=== PATIENT | female | born 1985 | race Caucasian/White ===

== ENCOUNTER → 2021-05-25 | Outpatient (CLI) | payer OTHER ==
--- NOTE | 2021-05-26 11:43 | RAD ---
EXAM: ULTRASOUND ABDOMEN COMPLETE CLINICAL HISTORY: ELEVATED LFTS, ABD PAIN COMPARISON: None available. TECHNIQUE: Ultrasound of the upper abdomen was performed. FINDINGS: The head and body of the pancreas are unremarkable. The tail is obscured by intestinal gas.. The liver measures 15.7 cm in length in the right mid clavicular line. Mild increased hepatic echoge nicity relative to the right kidney consistent with hepatic steatosis.. There are no focal liver les ions. Flow seen within the portal veins. The gallbladder is normal in appearance without evidence for cholelithiasis. There is no wall thicke ashvin or pericholecystic fluid. There is no pain with direct transducer pressure over the gallbladder . The common bile duct measures 0.5 cm. The spleen measures 11.1 cm. The right kidney measures 9.7 cm in bipolar length. Normal renal cortical echotexture and thickness. No focal renal lesion, hydronephrosis or shadowing renal calculus. The left kidney measures 10.7 cm in bipolar length. Normal renal cortical echotexture and thickness. No focal renal lesion, hydronephrosis or shadowing renal calculus. Visualized portions of the abdominal aorta and inferior vena cava are unremarkable. There is no free fluid in the upper abdomen. IMPRESSION: 1. Mild hepatic steatosis. 2. Normal gallbladder. Normal caliber common bile duct. Electronically signed by: Cristian Cardona MD (05/26/2021 9:13 AM) [id number]
--- NOTE | 2021-05-26 15:13 | RAD ---
EXAM: ULTRASOUND PELVIS EXAM: Pelvic ultrasound INDICATION: Pelvic pain, particularly. Last menstrual period was 04/24/2021. COMPARISON: None available. TECHNIQUE: Transvaginal sonography was performed. FINDINGS: The uterus measures 10.7 x 6.9 x 6.4 cm and is anteverted. The endometrium is very thickened measurin g 3 cm. No focal myometrial or endometrial mass. The right ovary measures 3.5 x 2.3 x 2.5 cm. The left ovary measures 4.6 x 5.1 x 3.4 cm. Normal ovari an blood flow bilaterally. There is a 4.8 x 3.5 x 2.8 cm left ovarian cyst. No internal vascularity. Small free fluid in the left adnexa.No adnexal mass. IMPRESSION: 1. Very thickened endometrium measuring 3 cm. 2. 4.8 cm left ovarian cyst. Intact ovarian blood flow. 3. Trace free fluid in the left adnexa. Electronically signed by: Meghna Schneider MD (05/26/2021 3:11 PM) [id number]
== END ==
LOC: US 09:40
PROVIDERS: ATTEND Clinical Nurse Specialist Family Health
DX: N83.202 Unspecified ovarian cyst, left side (principal); N94.6 Dysmenorrhea, unspecified; R74.8 Abnormal levels of other serum enzymes; K76.0 Fatty (change of) liver, not elsewhere classified; R93.89 Abnormal findings on diagnostic imaging of other specified body structures
CPT/HCPCS: 76700; 76830